=== PATIENT | male | born 2000 | race Two or more races ===

== ENCOUNTER 2018-11-06 23:56 | Emergency (ER) | payer OTHER ==
--- NOTE | 2018-11-07 00:46 | ER Document Report ---
ED General - General Chief Complaint: Seizure Stated Complaint: POSSIBLE SEIZURE Time Seen by Provider: 11/07/18 00:37 Notes: Patient is a 18-year-old male who presents with complaint of a seizure. Patient says that he was playing cards with family. He suddenly started to convulse and shake. Family says that patient's upper extremities tightened up and his jaw tightened up and start foaming at the mouth and had a little blood come out of his mouth. This last about 2-3 minutes and then patient was postictal afterwards. Patient's back to baseline now. He did come by embolus. They did not have to give him any medications other than Zofran due to some nausea and vomiting after the seizure. Denies recent trauma. No recent infections. No fevers. He says he had a little of a headache after the seizure but that is since improved. He said he did not have a headache or any symptoms prior to the seizure starting. He says it started suddenly without warning. No previous history of seizures. He takes no medications and is otherwise healthy. TRAVEL OUTSIDE OF THE [place] IN LAST 30 DAYS: No - Related Data Allergies/Adverse Reactions: No Known Allergies Allergy (Verified 11/07/18 03:16) Past Medical History - Social History Smoking Status: Never Smoker Frequency of alcohol use: None Drug Abuse: None Family History: Reviewed & Not Pertinent Review of Systems - Review of Systems Notes: My Normal Review Basic REVIEW OF SYSTEMS: CONSTITUTIONAL : Denies fever, chills, or sweats. Denies recent illness. EENT: Tongue biting from seizure. CARDIOVASCULAR: Denies chest pain. RESPIRATORY: Denies cough, cold, or chest congestion. Denies shortness of breath, difficulty breathing, or wheezing. GASTROINTESTINAL: Denies abdominal pain. Denies nausea, vomiting, or diarrhea. GENITOURINARY: Denies difficulty urinating, painful urination, burning, frequency, or blood in urine. MUSCULOSKELETAL: Denies neck or back pain or joint pain or swelling. SKIN: Denies rash or skin lesions. NEUROLOGICAL: Had a seizure ALL OTHER SYSTEMS REVIEWED AND NEGATIVE. Physical Exam - Vital signs Vitals: Temp Pulse Resp BP Pulse Ox 97.7 F 96 16 131/88 H 100 11/07/18 00:11 11/07/18 00:11 11/07/18 00:11 11/07/18 00:11 11/07/18 00:11 - Notes Notes: General Appearance: Well nourished, alert, cooperative, no acute distress, no obvious discomfort. Well Appearing. Vitals: reviewed, See vital signs table. Head: no swelling or tenderness to the head Eyes: PERRL, EOMI, Conjuctiva clear Mouth: No decreasd moisture. Bite landaverde along the lateral aspect of the tongue. Throat: No tonsillar inflammation, No airway obstruction, No lymphadenopathy Neck: Supple, no neck tenderness, No thyromegaly Lungs: No wheezing, No rales, No rhonci, No accessory muscle use, good air exchange bilaterally. Heart: Normal rate, Regular rythm, No murmur, no rub Extremities: strength 5/5 in all extremities, good pulses in all extremities, no swelling or tenderness in the extremities, no edema. Skin: warm, dry, appropriate color, no rash Neuro: speech clear, oriented x 3, normal affect, responds appropriately to questions. Cranial nerves II through XII are intact. Distal sensation intact. Patient was all extremities without difficulty. Normal ambulation. Normal Romberg. Course - Re-evaluation Re-evalutation: 11/07/18 03:28 Patient's findings and history are consistent with a seizure. He is down here visiting from [facility]. He is staying with friends. I did get his mother on speaker phone and reviewed his findings with his mother as well as with the patient himself. I talked at length about first time seizure and workup and treatment for this. We will place him on Keppra 500 mg twice a day and have him follow-up with a neurologist. Encouraged him to follow-up with a neurologist as soon as he gets back to [place]. Informed him he is not allowed to drive. I informed him that he must return to the ER immediately if he has recurrence of seizure despite being on medication. At this time he has no signs of infection. No fevers. Does have a leukocytosis however this is likely related to demargination from having a seizure itself. He does not any infectious type symptoms. He is completely neurologically intact without any neurologic deficits on exam. He looks well. Seizure was less than 5 minutes with a normal postictal time. I feel he safe to be discharged home. Patient agrees with plan will be discharged home. - Vital Signs Vital signs: Temp Pulse Resp BP Pulse Ox 98.9 F 96 16 120/74 99 11/07/18 00:37 11/07/18 00:11 11/07/18 03:01 11/07/18 03:01 11/07/18 03:01 - Laboratory Result Diagrams: 11/07/18 00:50 11/07/18 00:50 Laboratory results interpreted by me: 11/07/18 11/07/18 00:50 00:50 WBC 16.2 H Seg Neutrophils % 86.3 H Lymphocytes % 6.9 L Absolute Neutrophils 13.9 H Sodium 135.8 L Potassium 3.4 L Carbon Dioxide 17 L Calcium 10.4 H Discharge - Discharge Clinical Impression: Seizure Condition: Good Disposition: HOME, SELF-CARE Additional Instructions: Seizure You have had a seizure. Seizure disorders (epilepsy) of one sort or another affect about one out of 50 people. The seizure occurs because of abnormal electrical activity in the brain. Seizures may be due to drugs and alcohol, strokes, brain injury, or infection. In the most common form of epilepsy, no cause can be found. You will require further evaluation to determine the cause of your seizure, and to determine whether anti-seizure medication is required. This follow-up testing is important, so please call us if you encounter problems with scheduling of tests or appointments. YOU SHOULD NOT DRIVE until released to do so by your physician. Call the doctor if seizures recur, or if you develop new symptoms such as fever, severe headache, stiff neck, confusion or increasing sleepiness, weakness or numbness, or visual problems. I will start you on a medication called Keppra. Please take this as prescribed. Please follow-up with a neurologist in your hometown in [place]. Please call their office or follow-up with your primary care doctor to be referred to neurologist. You will need further testing for further workup of possibility of underlying seizure disorder. They will likely order tests such as an MRI of your brain as well as EEG testing. CT scan of your brain was performed here and it was normal. You cannot drive until cleared by neurologist. Please return to the ER immediately if you have any recurrent seizures. Prescriptions: Levetiracetam [Keppra 500 mg Tablet] 500 mg PO Q12 #60 tablet
[2018-11-07 01:08] LABS: ABSOLUTE LYMPHOCYTES (AUTO) 1.1 10^3/uL (0.5-4.7); ABSOLUTE MONOCYTES (AUTO) 1.1 10^3/uL (0.1-1.4); ABSOLUTE NEUT (AUTO) 13.9 10^3/uL (1.7-8.2); BASOPHILS % (AUTO) 0.2 % (0-2); HEMATOCRIT 45.5 % (37.9-51.0); LYMPHOCYTES % (AUTO) 6.9 % (13-45); MEAN CORPUSCULAR HEMOGLOBIN 32.9 pg (27.0-33.4); MEAN CORPUSCULAR HGB CONC 35.2 g/dL (32.0-36.0); MEAN CORPUSCULAR VOLUME 94 fl (80-97); MONOCYTES % (AUTO) 6.6 % (3-13); PLATELET COUNT 209 10^3/uL (150-450); RED BLOOD COUNT 4.86 10^6/uL (4.35-5.55); RED CELL DISTRIBUTION WIDTH 13.1 % (11.5-14.0); SEGMENTED NEUTROPHILS % (AUTO) 86.3 % (42-78); TOTAL CELLS COUNTED % (AUTO) 100 %; WHITE BLOOD COUNT 16.2 10^3/uL (4.0-10.5)
[2018-11-07 01:22] LABS: ANION GAP 15 (5-19); BLOOD UREA NITROGEN 14 mg/dL (7-20); CALCIUM 10.4 mg/dL (8.4-10.2); CARBON DIOXIDE 17 mmol/L (22-30); CHLORIDE 104 mmol/L (98-107); GLUCOSE 99 mg/dL (75-110); POTASSIUM 3.4 mmol/L (3.6-5.0); SODIUM 135.8 mmol/L (137-145)
--- NOTE | 2018-11-07 01:28 | RADIOLOGY REPORT (SQ) ---
EXAM DESCRIPTION: CT HEAD WITHOUT IV CONTRAST COMPLETED DATE/TME: 11/07/2018 00:44 CLINICAL HISTORY: 18 years, Male, seizure COMPARISON: None. TECHNIQUE: 185 Images stored on PACS. All CT scanners at this facility use dose modulation, iterative reconstruction, and/or weight based dosing when appropriate to reduce radiation dose to as low as reasonably achievable (ALARA). [facility]: Dose Right [facility]: CareDose [facility]: Dose Right [facility]: Teradose 4D [facility]: [employer] LIMITATIONS: None. FINDINGS: The globes are intact. Paranasal sinuses and mastoid air cells are unremarkable. No displaced or depressed skull fracture. No intra or extra-axial hemorrhage. CT is limited for evaluation of acute infarct. No CT evidence for large or territorial acute infarct. No mass or midline shift IMPRESSION: Negative exam TECHNICAL DOCUMENTATION: Quality ID # [id number]: Final reports with documentation of one or more dose reduction techniques (e.g., Automated exposure control, adjustment of the mA and/or kV according to patient size, use of iterative reconstruction technique) copyright 2011 [employer]- All Rights Reserved
[2018-11-07] MEDS ORDERED: MAGNESIUM OXIDE 400 MG TABLET PO ONE (02:10)
[2018-11-07] MEDS ORDERED: POTASSIUM CHLORIDE 10 MEQ CAPSULE.ER PO ONE (02:10)
[2018-11-07] MEDS ORDERED: LEVETIRACETAM 500 MG TABLET PO ONE (02:12)
[2018-11-07 03:53] VITALS: BP 103/79
== END 2018-11-07 04:33 | disposition home or self-care (01) ==
LOC: ER 23:56
DX: R56.9 Unspecified convulsions (principal)
CPT/HCPCS: 36415; 70450; 80048; 85025; 99285